=== PATIENT | female | born 2000 | race Caucasian/White ===

== ENCOUNTER → 2022-10-30 14:42 | Outpatient (BNVA) | payer MEDICAID, SELFPAY | PROVIDERS: Family Provider Pediatrics; Visit Provider Obstetrics & Gynecology | DX: Z34.90 Encounter for supervision of normal pregnancy, unspecified, unspecified trimester (principal) | CPT/HCPCS: 80307; 81000; 81025; 84315; 85027; 86592; 86762; 86803; 86850; 86900; 87086; 87340; 87806 ==

== ENCOUNTER → 2022-11-26 13:40 | Outpatient (BNVA) | payer BC, SELFPAY | PROVIDERS: Family Provider Pediatrics; Visit Provider Obstetrics & Gynecology | DX: Z36.87 Encounter for antenatal screening for uncertain dates (principal) | CPT/HCPCS: 76815; 81000 ==

== ENCOUNTER 2022-12-09 17:29 | Emergency (ER) | payer BC, MEDICAID, SELFPAY ==
[2022-12-09 17:43] VITALS: BP 107/60; PULSE 87; RESP 16; TEMP 36.3; O2SAT 97; BMI 21.9
[2022-12-09 18:28] LABS: Alanine Aminotransferase 20 U/L (0-33); Alkaline Phosphatase 62 U/L (35-105); Anion Gap 13.8 (5-19); Aspartate Amino Transferase 19 U/L (0-32); Blood Urea Nitrogen 13 mg/dL (6-20); Calcium 8.6 mg/dL (8.5-10.5); Carbon Dioxide 21 mmol/L (22-29); Chloride 105 mmol/L (98-107); Globulin 2.6 g/dL (1.3-4.6); Glomerular Filtration Rate 155.7 mL/min (90-130); Glucose 80 mg/dL (65-115); Lipase 17 U/L (13-60); Osmolality Calculated 281 mOsm/kg (285-295); Potassium 3.8 mmol/L (3.5-5.1); Sodium 136 mmol/L (136-145); Total Bilirubin 0.2 mg/dL (0.15-1.2); Total Protein 6.6 g/dL (6.6-8.7)
[2022-12-09 18:32] LABS: Basophils % 0.2 %; Eosinophils # 0.1 10^3/uL (0.0-0.8); Eosinophils % 0.6 %; Hematocrit 32.3 % (37.0-47.0); Hemoglobin 10.8 g/dL (11.5-15.3); Lymphocytes # 2.2 10^3/uL (0.8-4.8); Lymphocytes % 17.8 %; Mean Corpuscular HGB Conc 33.4 g/dL (30.0-36.0); Mean Corpuscular Hemoglobin 32.3 pg (28.0-34.0); Mean Corpuscular Volume 96.7 fl (81-99); Mean Platelet Volume 8.7 fL (7.4-10.4); Monocytes # 0.8 10^3/uL (0.2-0.9); Monocytes % 6.5 %; Neutrophils # 9.15 10^3/uL (1.8-7.7); Neutrophils % 74.2 %; Nucleated Red Blood Cells % 0 %; Platelet Count 260 10^3/cmm (130-400); Red Blood Count 3.34 10^6/uL (4.1-5.3); Red Cell Distribution Width 11.9 % (12.1-15.1); White Blood Count 12.3 10^3/uL (4.0-10.0)
[2022-12-09 18:40] LABS: Urine Appearance Cloudy (CLEAR); Urine Color Yellow (Yellow)
[2022-12-09 18:41] LABS: Bilirubin Urine Neg (Negative); Blood Urine Neg (Negative); Glucose Urine UA Norm (Normal); Ketones Urine Negative (Negative); Nitrate Urine Negative (Negative); Protein Urine Neg (Negative); Urobilinogen Urine Norm (Negative); pH Urine 7 (5-7)
[2022-12-09 18:43] LABS: Add Urine Microscopic? YES; Leukocyte Esterase Urine 2+ (Negative)
[2022-12-09 18:44] LABS: Bacteria Urine 3+ /hpf; RBC Urine 0-4 /hpf (0-2); Squamous Epithelial Cell Urine 15-25 /hpf (0-5)
[2022-12-09] MEDS: sodium chloride 0.9% 1,000 ML 999 ML IV (18:46)
[2022-12-09] MEDS: acetaminophen 500 mg Tablet 1000 MG PO (18:46)
--- NOTE | 2022-12-09 18:57 | ED_ITS ---
HPI - General: Chief complaint: OB/Uterine Contractions Stated complaint: 16 Weeks , Abd pain, Time Seen by Provider: 12/09/22 18:24 Source: patient Mode of arrival: ambulatory Limitations: no limitations History of Present Illness: 22-year-old female who is roughly 18 weeks states she has had some lower abdominal pain over the last day states that the bandlike pain across her abdomen rates pain a 4 out of 10 denies any vomiting or diarrhea had some increased urination denies any dysuria she denies fevers. Associated symptoms: Reports abdominal pain; Deny dysuria, headache(s), nausea or vomiting Review of Systems Const: Denies: fever(s) or chills Eyes: Denies: eye discomfort ENMT: Denies: throat pain or dental pain Card: Denies: chest pain Resp: Denies: dyspnea GI: Reports: abdominal pain; Denies: nausea or vomiting : Denies: dysuria Musc: Denies: neck pain or back pain Skin/Breast: Denies: rash Neuro: Denies: headache(s) PFSH ED PFSH: Family History Grandmother Thyroid disease Maternal Ovarian cancer Mother Ovarian cancer Denies family history of Colon cancer Diabetes Heart disease Breast cancer Hypertension Uterine cancer Stroke Physical Exam Const: COMMON NORMALS: no acute distress, patient oriented x3 and healthy appearing HENMT: COMMON NORMALS: normocephalic; head/scalp not atraumatic HEAD & SCALP: normocephalic; not atraumatic Eye: COMMON NORMALS: conjunctivae normal CONJUNCTIVA: Yes conjunctivae normal Neck/C-Spine: COMMON NORMALS: full ROM and supple Chest: COMMONS NORMALS: normal inspection of the chest and normal palpation of entire chest wall Resp: COMMON NORMALS: normal respiratory effort, No retractions, No use of accessory muscles and clear to auscultation bilaterally AUSCULTATION: clear to auscultation bilaterally Cardio: COMMON NORMALS: regular rate, regular rhythm and No murmurs present (Cardio) RATE: regular rate RHYTHM: regular rhythm GI: COMMON NORMALS: Normal to inspection, nondistended, normoactive bowel sounds present, Soft to palpation and no masses PALPATION: Yes Soft to palpation OTHER: Gravid uterus slight suprapubic tenderness no right lower quadrant tenderness. Extremity: COMMON NORMALS: normal to inspection and full ROM Neuro: COMMON NORMALS: patient oriented x3, moves all extremities and no focal motor deficits Psych: COMMON NORMALS: mental status grossly normal, Normal thought process present and cooperative THOUGHT PROCESS: Normal thought process present Skin: COMMON NORMALS: no rashes or lesions noted and no wounds GENERAL SKIN EXAM: no rashes or lesions noted Course Vital Signs: Vital signs: Vital Signs Temperature 97.4 F L 12/09/22 17:43 Pulse Rate 87 12/09/22 17:43 Respiratory Rate 16 12/09/22 17:43 Blood Pressure 107/60 12/09/22 17:43 Pulse Oximetry 97 12/09/22 17:43 Oxygen Delivery Me thod Room Air 12/09/22 17:43 MDM - OB/Uterine Contractions Medical Decision Making Patient presents here with abdominal pain in likely from her UTI she has no right lower quadrant tenderness no signs of appendicitis here did a be dside ultrasound showed IUP with heart rate of 152 she is stable for discharge she is to follow-up with her PCP and return if worsening she understands agrees to plan. Lab Data 12/09/22 18:00 12/09/22 18:00 Laboratory Results WBC 12.3 10^3/uL (4.0-10.0) H 12/09/22 18:00 RBC 3.34 10^6/uL (4.1-5.3) L 12/09/22 18:00 Hgb 10.8 g/dL (11.5-15.3) L 12/09/22 18:00 Hct 32.3 % (37.0-47.0) L 12/09/22 18:00 MCV 96.7 fl (81-99) 12/09/22 18:00 MCH 32.3 pg (28.0-34.0) 12/09/22 18:00 MCHC 33.4 g/dL (30.0-36.0) 12/09/22 18:00 RDW 11.9 % (12.1-15.1) L 12/09/22 18:00 Plt Count 260 10^3/cmm (130-400) 12/09/22 18:00 MPV 8.7 fL (7.4-10.4) 12/09/22 18:00 Neut % (Auto) 74.2 % 12/09/22 18:00 Lymph % (Auto) 17.8 % 12/09/22 18:00 [place] % (Auto) 6.5 % 12/09/22 18:00 Eos % (Auto) 0.6 % 12/09/22 18:00 Baso % (Auto) 0.2 % 12/09/22 18:00 Neut # (Auto) 9.15 10^3/uL (1.8-7.7) H 12/09/22 18:00 Lymph # (Auto) 2.2 10^3/uL (0.8-4.8) 12/09/22 18:00 [place] # (Auto) 0.8 10^3/uL (0.2-0.9) 12/09/22 18:00 Eos # (Auto) 0.1 10^3/uL (0.0-0.8) 12/09/22 18:00 Baso # (Auto) 0.0 10^3/uL (0.0-0.1) 12/09/22 18:00 Nucleated RBC % (auto) 0 % 12/09/22 18:00 Nucleated RBCs # 0.0 /100WBC 12/09/22 18:00 Sodium 136 mmol/L (136-145) 12/09/22 18:00 Potassium 3.8 mmol/L (3.5-5.1) 12/09/22 18:00 Chloride 105 mmol/L (98-107) 12/09/22 18:00 Carbon Dioxide 21 mmol/L (22-29) L 12/09/22 18:00 Anion Gap 13.8 (5-19) 12/09/22 18:00 BUN 13 mg/dL (6-20) 12/09/22 18:00 Creatinine 0.5 mg/dL (0.5-0.9) 12/09/22 18:00 GFR Calculation 155.7 mL/min (90-130) H 12/09/22 18:00 Glucose 80 mg/dL (65-115) 12/09/22 18:00 Calculated Osmolality 281 mOsm/kg (285-295) L 12/09/22 18:00 Calcium 8.6 mg/dL (8.5-10.5) 12/09/22 18:00 Total Bilirubin 0.2 mg/dL (0.15-1.2) 12/09/22 18:00 AST 19 U/L (0-32) 12/09/22 18:00 ALT 20 U/L (0-33) 12/09/22 18:00 Alkaline Phosphatase 62 U/L (35-105) 12/09/22 18:00 Total Protein 6.6 g/dL (6.6-8.7) 12/09/22 18:00 Albumin 4.0 g/dL (3.5-5.2) 12/09/22 18: Globulin 2.6 g/dL (1.3-4.6) 12/09/22 18:00 Lipase 17 U/L (13-60) 12/09/22 18:00 Urine Color Yellow (Yellow) 12/09/22 18: Urine Appearance Cloudy (CLEAR) A 12/09/22 18: Urine pH 7 (5-7) 12/09/22 18:29 Ur Specific [place] 1.010 (1.005-1.030) 12/09/22 18: Urine Protein Neg (Negative) 12/09/22 18: Urine Glucose (UA) Norm (Normal) 12/09/22 18: Urine Ketones Negative (Negative) 12/09/22 18: Urine Blood Neg (Negative) 12/09/22 18: Urine Nitrate Negative (Negative) 12/09/22 18: Urine Bilirubin Neg (Negative) 12/09/22 18: Urine Urobilinogen Norm mg/dL (Negative) 12/09/22 18: Ur Leukocyte Esterase 2+ (Negative) H 12/09/22 18: Urine RBC 0-4 /hpf (0-2) H 12/09/22 18:29 Urine WBC 10-15 /hpf (0-5) H 12/09/22 18:29 Ur Squamous Epith Cells 15-25 /hpf (0-5) H 12/09/22 18: Amorphous Sediment Not Reportable 12/09/22 18: Urine Bacteria 3+ /hpf (NONE) H 12/09/22 18: Discharge Plan Discharge Patient Disposition: Home Clinical Impression: Acute cystitis, Abdominal pain in Condition: Stable Prescriptions: New cephalexin 500 mg capsule 500 mg PO TID 7 Days Qty: 21 0RF No Action prenat.vits,guilherme,yvf-dysx-sduun Tablet 1 tab PO DAILY Qty: 90 3RF Discharge Orders: Discharge ED (Routine); Ordered 12/09/22 Ordered By: Reyna Almeida Discharge Diet: Advance as tolerated Discharge Activity: Resume usual activity Patient Instructions: Urinary Tract Infection in Women (ED), Abdominal Pain in (ED) Coding Level of Care Code ED Biomedical Equipment Specialist for Anya Peters
[2022-12-09] MEDS: cefTRIAXone 1,000 MG in sodium chloride 0.9% (plus) 50 ML 100 MG IV (19:02)
--- NOTE | 2022-12-14 12:57 | DCPLANNER ---
condominium manager called patient due to no primary care physician - no answer at this time.
== END 2022-12-09 19:41 | disposition home or self-care (01) ==
PROVIDERS: Nurse Practitioner Family; Emergency Provider Emergency Medicine
DX: O23.12 Infections of bladder in pregnancy, second trimester (principal); N30.00 Acute cystitis without hematuria; Z3A.18 18 weeks gestation of pregnancy
CPT/HCPCS: 36415; 80053; 81001; 83690; 84702; 85025; 96365; 99284; J0696; J7030

== ENCOUNTER → 2022-12-26 14:37 | Outpatient (BNVA) | payer BC, MEDICAID, SELFPAY | PROVIDERS: Visit Provider Obstetrics & Gynecology | DX: Z36.87 Encounter for antenatal screening for uncertain dates (principal); Z3A.20 20 weeks gestation of pregnancy | CPT/HCPCS: 76805 ==

== ENCOUNTER → 2023-01-02 15:04 | Outpatient (BNVA) | payer BC, MEDICAID, SELFPAY | PROVIDERS: Visit Provider Obstetrics & Gynecology | DX: Z34.00 Encounter for supervision of normal first pregnancy, unspecified trimester (principal) | CPT/HCPCS: 81000 ==

== ENCOUNTER → 2023-02-13 09:47 | Outpatient (BNVA) | payer BC, MEDICAID, SELFPAY | PROVIDERS: Visit Provider Obstetrics & Gynecology | DX: Z34.00 Encounter for supervision of normal first pregnancy, unspecified trimester (principal) | CPT/HCPCS: 76816; 81000; 82950; 85025 ==

== ENCOUNTER → 2023-02-26 09:14 | Outpatient (BNVA) | payer BC, MEDICAID, SELFPAY | PROVIDERS: Visit Provider Obstetrics & Gynecology | DX: Z34.00 Encounter for supervision of normal first pregnancy, unspecified trimester (principal) | CPT/HCPCS: 81000 ==

== ENCOUNTER → 2023-03-13 13:45 | Outpatient (BNVA) | payer BC, MEDICAID, SELFPAY | PROVIDERS: Family Provider Pediatrics; Visit Provider Obstetrics & Gynecology | DX: Z34.00 Encounter for supervision of normal first pregnancy, unspecified trimester (principal) | CPT/HCPCS: 81000 ==

== ENCOUNTER → 2023-03-27 13:10 | Outpatient (BNVA) | payer BC, MEDICAID, SELFPAY | PROVIDERS: Family Provider Pediatrics; Visit Provider Nurse Practitioner Women's Health | DX: Z34.00 Encounter for supervision of normal first pregnancy, unspecified trimester (principal) | CPT/HCPCS: 80307; 81000; 87086; 87491; 87591 ==

== ENCOUNTER → 2023-03-28 12:33 | Outpatient (BNVA) | payer BC, MEDICAID, SELFPAY | PROVIDERS: Family Provider Pediatrics; Visit Provider Obstetrics & Gynecology | DX: Z34.90 Encounter for supervision of normal pregnancy, unspecified, unspecified trimester (principal) | CPT/HCPCS: 76816 ==

== ENCOUNTER → 2023-04-08 15:45 | Outpatient (BNVA) | payer BC, MEDICAID, SELFPAY | PROVIDERS: Family Provider Pediatrics; Visit Provider Obstetrics & Gynecology | DX: Z34.90 Encounter for supervision of normal pregnancy, unspecified, unspecified trimester (principal) | CPT/HCPCS: 81000 ==

== ENCOUNTER → 2023-04-17 15:30 | Outpatient (BNVA) | payer BC, MEDICAID, SELFPAY | PROVIDERS: Family Provider Pediatrics; Visit Provider Obstetrics & Gynecology | DX: Z34.90 Encounter for supervision of normal pregnancy, unspecified, unspecified trimester (principal) | CPT/HCPCS: 81000; 87081 ==

== ENCOUNTER → 2023-04-24 13:13 | Outpatient (BNVA) | payer BC, MEDICAID, SELFPAY | PROVIDERS: Family Provider Pediatrics; Visit Provider Obstetrics & Gynecology | DX: Z34.00 Encounter for supervision of normal first pregnancy, unspecified trimester (principal) | CPT/HCPCS: 81000 ==

== ENCOUNTER → 2023-05-01 13:41 | Outpatient (BNVA) | payer BC, MEDICAID, SELFPAY | PROVIDERS: Family Provider Pediatrics; Visit Provider Obstetrics & Gynecology | DX: Z34.00 Encounter for supervision of normal first pregnancy, unspecified trimester (principal) | CPT/HCPCS: 81000 ==

== ENCOUNTER → 2023-05-08 13:44 | Outpatient (BNVA) | payer BC, MEDICAID, SELFPAY | PROVIDERS: Family Provider Pediatrics; Visit Provider Nurse Practitioner Women's Health | DX: Z34.00 Encounter for supervision of normal first pregnancy, unspecified trimester (principal) | CPT/HCPCS: 81000 ==

== ENCOUNTER → 2023-05-13 07:52 | Outpatient (BNVA) | payer BC, MEDICAID, SELFPAY | PROVIDERS: Family Provider Pediatrics; Visit Provider Nurse Practitioner Women's Health | DX: Z34.00 Encounter for supervision of normal first pregnancy, unspecified trimester (principal) | CPT/HCPCS: 76815; 76819; 76820 ==

== ENCOUNTER 2023-05-13 19:28 | Inpatient (IN) | payer BC, MEDICAID, SELFPAY ==
[2023-05-13] VITALS (34 sets, daily range): BP systolic 93–140; BP diastolic 50–83; PULSE 59–86; RESP 16–18; TEMP 36.1–36.7; BMI 30.7
--- NOTE | 2023-05-13 13:10 | PM.OBGYHP ---
Providers/Chief Complaint Admitting Physician: Dr. Milian Primary SUBWAY TRAIN OPERATOR: Dr. Milian Chief Complaint: induction HPI SUBWAY TRAIN OPERATOR History of Present Illness Ingrid Simmons is a 23 year old female G1, P0 at 40.2 weeks gestation with SOSA 05/11/2023 by ultrasound. Patient is admitted to labor and delivery for induction of labor. Patient admits to good movement, she denies vaginal bleeding or leakage of fluid. Patient had ultrasound today with BPP 8/8, estimated weight 2930 g, estimated gestational age 37 weeks, GABI 13.7 cm with vertex presentation anterior placenta. EFM?category 1 on admission Cervix?closed/50%/-2 vertex presentation Discussed plan with patient for Cytotec administration to help repair the cervix for labor which may also cause mild contractions. Contractions will gradually increase in intensity. Several Cytotec doses may be needed to prepare cervix for labor. Nonreassuring monitoring may indicate need for section delivery. Plan reviewed with patient and family member both verbalized understanding. Present Details : 1 Para: 0 Obstetrical complications: none Medical complications OB: none Other Details: Patient has continued to use marijuana and vape during . Review of Systems General: Reports: 10 or more systems reviewed and unremarkable except in HPI and below Medications/Allergies Home Medications Medication Instructions Recorded Confirmed Last Taken Type prenat.vits,guilherme,pgk-knns-erlpf 1 tab PO DAILY #90 tabs 10/30/22 05/13/23 Unknown Rx ondansetron HCl 4 mg tablet 4 mg PO Q8H PRN nausea and 05/02/23 05/13/23 Unknown Rx vomiting #30 tabs Allergies Allergy/AdvReac Type Severity Reaction Status Date / Time No Known Allergies Allergy Verified 05/13/23 08:02 PFSH SUBWAY TRAIN OPERATOR PFSH: Family History (Reviewed 05/08/23 @ 12:13 by Graciela Vega [facility]) Grandmother Thyroid disease Maternal Ovarian cancer Mother Ovarian cancer Denies family history of Colon cancer Diabetes Heart disease Breast cancer Hypertension Uterine cancer Stroke Other Female Reproductive History: Hx Age of Menarche: 15 Duration of menses: 3-5 days Cycle Length: 28 to 34 days Menstrual flow: normal/abnormal: normal Sexual History: How old were you when you first had sex?: 15 How many partners have you had?: 5 How long have you been with your current partner?: Since 2021 What is your sexual preference?: Heterosexual STD History Comment: Denies history of STDs Contraception: Contraception History Comment: History of Depo-Provera use History History History 1 Term 1 0 Miscarriages/Ectopic Living Children Care SOSA Calculator Estimated Delivery Date Method Current WG Current Estimate 05/11/23 Ultrasound #1 40w 2d Other Estimates 06/01/23 LMP (Uncertain) 37w 2d Vitals/I&O/Wt Last Vital Signs Pulse 69 05/13/23 13:00 BP 120/61 05/13/23 13:00 Weight last 48 hrs Weight 76.204 kg Physical Exam Narrative: 23-year-old female Const: COMMON NORMALS: no acute distress, patient oriented x3, healthy appearing and well nourished HENMT: COMMON NORMALS: normocephalic and moist oral mucous membranes Resp: COMMON NORMALS: clear to auscultation bilaterally Cardio: COMMON NORMALS: regular rate and regular rhythm Back/Pelvis: OTHER: Abdomen?gravid Extremity: COMMON NORMALS: no clubbing, cyanosis or edema and no calf tenderness Neuro: COMMON NORMALS: CN's II-XII intact bilaterally Results Labs OB ([facility]): Obstetrics US 03/28/23 Obstetrics US/Biophysical Profile 05/13/23 Blood Type A Positive 10/30/22 Antibody Screen Not Reportable 10/30/22 Hct 36.1 % (37.0-47.0) L 02/13/23 Hgb 12.2 g/dL (11.5-15.3) 02/13/23 Rho(D) Type Positive 10/30/22 Plt Count 268 10^3/cmm (130-400) 02/13/23 Hep Bs Antigen Non-reactive (Nonreactive) 10/30/22 Hepatitis C Antibody Non-reactive (Nonreactive) 10/30/22 Rubella IgG Antibody 124.1 IU/mL (0.0-10.0) H 10/30/22 RPR Nonreactive (Nonreactive) 10/30/22 HIV 1&2 Ab & HIV 1 Ag Non-reactive (Non-Reactiv) 10/30/22 C.trachomatis RNA (TMA) Not detected (NOT DETECTED) 03/27/23 N.gonorrhoeae RNA (TMA) Not detected (NOT DETECTED) 03/27/23 Chlamydia/GC Comment See note 03/27/23 Cystic Fibrosis Screen Negative 10/30/22 Gest Glucose Tolerance 101 mg/dL 02/13/23 Ser , Semi-Qnt 21200.00 mIU/mL 12/09/22 HCG, Qual Positive (Negative) H 10/30/22 Urine Opiates Screen Negative ng/mL (Negative) 03/27/23 Ur Barbiturates Screen Negative ng/mL (Negative) 03/27/23 Ur Phencyclidine Scrn Negative ng/mL (Negative) 03/27/23 Ur Amphetamines Screen Negative ng/mL (Negative) 03/27/23 U Benzodiazepines Scrn Negative ng/mL (Negative) 03/27/23 Urine Cocaine Screen Negative ng/mL (Negative) 03/27/23 U Marijuana (THC) Screen Positive ng/mL (Negative) H 03/27/23 Micro Urine Specimen 03/27/23 A&P Assessment and plan (1) 40 weeks gestation of : Plan. #1 admit to labor and delivery for cervical ripening/induction of labor. (2) Post-dates : (3) Nicotine abuse: (4) Marijuana use during : Attestations Medical Necessity Statement*: Admission to labor and delivery for induction of labor due to postdates Coding Level of Care Code Acute Code for Chg Fwd Diagnoses 40 weeks gestation of Z3A.40 Post-dates O48.0 Nicotine abuse Z72.0 Marijuana use during O99.320; F12.90
[2023-05-13] MEDS: lactated ringers 1,000 ML 999 ML IV (13:24)
[2023-05-13] MEDS: miSOPROStol 100 mcg tablet 25 MCG VAGINAL (14:16)
[2023-05-13 14:31] LABS: Basophils # 0.1 10^3/uL (0.0-0.1); Basophils % 0.3 %; Eosinophils % 0.2 %; Hematocrit 35.7 % (36-47); Lymphocytes # 2.7 10^3/uL (0.8-4.8); Lymphocytes % 17.1 %; Mean Corpuscular HGB Conc 34.7 g/dL (30-55); Mean Corpuscular Hemoglobin 34.6 pg (27-33); Mean Corpuscular Volume 99.7 fl (85-98); Mean Platelet Volume 10.3 fL (7.4-10.4); Monocytes # 1.1 10^3/uL (0.2-0.9); Monocytes % 6.7 %; Neutrophils # 11.94 10^3/uL (1.8-7.7); Neutrophils % 74.3 %; Nucleated Red Blood Cells % 0 %; Platelet Count 257 10^3/cmm (157-399); Red Blood Count 3.58 10^6/uL (3.85-5.65); Red Cell Distribution Width 11.9 % (12.1-15.1); White Blood Count 16.06 10^3/uL (3.29-11.43)
[2023-05-13] MEDS: dextrose 5%-lactated ringers 1,000 ML 125 ML IV (14:41)
[2023-05-13 15:33] LABS: Amphetamines Screen Urine Negative (Negative); Barbiturates Screen Urine Negative (Negative); Benzodiazepines Screen Urine Negative (Negative); Cocaine Screen Urine Negative (Negative); Opiate Screen Urine Negative (Negative); PCP Screen Urine Negative (Negative); THC Screen Urine Positive (Negative)
--- NOTE | 2023-05-13 20:35 | P.PN_ITS ---
LIFE INSURANCE SALES AGENT Subjective Subjective: Interval history: 22 y.o. At 40 w 2 d Admitted for IOL Fetus reassuring Received one dose of Cytotec Feeling very mild UCs Cx: 1 cm / -2 / Vtx Plan repeat Cytotec 25 ug intravaginal Labor: Station: +3 Amniotic Membrane Status: Ruptured Monitor Mode: Palpation Contraction Pattern: Regular Status: Category I Vitals/I&O/Wt Last Vital Signs Temp 98.1 F 05/14/23 18:54 Pulse 78 05/14/23 18:54 Resp 18 05/14/23 18:54 BP 127/80 05/14/23 18:54 Pulse Ox 98 05/14/23 18:54 O2 Del Method Room Air 05/14/23 18:54 05/14/23 05/14/23 05/14/23 06:59 14:59 22:59 Intake Total 62.050 / 2063.400 2436.600 / 2436.600 Output Total 800 / 800 Balance 62.050 / 2063.400 1636.600 / 1636.600 Weight last 48 hrs Weight 168 lb Weight 168 lb Data 05/13/23 12:45 A&P Assessment and plan (1) 40 weeks gestation of : patient admitted for labor induction (2) Encounter for induction of labor: received one dose of cytotec plan repeat cytotec 25 ug intravaginal Attestations Medical Necessity Statement*: patient at 40 w 2 d, admitted for induction of labor Coding Level of Care Code Acute Code for Chg Fwd Diagnoses 40 weeks gestation of Z3A.40 Encounter for induction of labor Z34.90 Time Spent (min) 20
[2023-05-13] MEDS: oxytocin 30 UNIT/500 ML BAG IV (21:23)
[2023-05-14] VITALS (40 sets, daily range): BP systolic 114–165; BP diastolic 55–89; PULSE 52–116; RESP 16–20; TEMP 35.6–36.7; O2SAT 94–100
[2023-05-14] MEDS: dextrose 5%-lactated ringers 1,000 ML 125 ML IV (00:40)
[2023-05-14] MEDS: fentaNYL 50 mcg/mL INJ 2mL IVP ×5 (01:00→07:59)
[2023-05-14] MEDS: ondansetron 2 mg/ML SDV 2 mL 4 MG IVP (01:54)
[2023-05-14] MEDS: lactated ringers 1,000 ML 999 ML IV (08:30)
[2023-05-14] MEDS: lidocaine 2% INJ 20 mL INJECTION (10:40)
--- NOTE | 2023-05-14 11:05 | PM.DELIVERY ---
Delivery Note: Date of delivery: May 14, 2023 Pre-delivery diagnoses: 40 w 2 d admitted for induction of labor Post-delivery diagnoses: 40 w 2 d admitted for induction of labor vaginal delivery second-degree perineal laceration repair Procedure: Spontaneous vaginal delivery second-degree perineal laceration repair Op report anesthesia: None Delivering Physician: Raphael HUMPHRIES Estimated blood loss (mL): 300 Findings: , vigorous male Normal placenta and cord Cord gases and blood obtained Second-degree perineal laceration repaired EBL 300 cc No complications Pre-Delivery Course: patient progressed without complications Delivery: vaginal delivery Post-Delivery Status: Stable History History History 1 Term 1 0 Miscarriages/Ectopic Living Children Other History: Patient has continued to use marijuana and vape during . A&P Assessment and plan (1) Vaginal delivery: s/p spontaneous vaginal delivery (2) Perineal laceration during delivery: repair of second-degree perineal laceration Coding Level of Care Code Acute Code for Chg Fwd Diagnoses Vaginal delivery O80 Perineal laceration during delivery O70.9 Time Spent (min) 90
--- NOTE | 2023-05-14 11:05 | PM.OBGYPN ---
RUBBER COMPOUNDER Subjective Subjective: Interval history: May 14, 2023, 1105 , vigorous male Normal placenta and cord Cord gases and blood obtained Second-degree perineal laceration repaired EBL 300 cc No complications Labor: Station: +3 Amniotic Membrane Status: Ruptured Monitor Mode: Palpation Contraction Pattern: Regular Status: Category I Vitals/I&O/Wt Last Vital Signs Temp 98.1 F 05/14/23 18:54 Pulse 78 05/14/23 18:54 Resp 18 05/14/23 18:54 BP 127/80 05/14/23 18:54 Pulse Ox 98 05/14/23 18:54 O2 Del Method Room Air 05/14/23 18:54 05/14/23 05/14/23 05/14/23 06:59 14:59 22:59 Intake Total 62.050 / 2063.400 2436.600 / 2436.600 Output Total 800 / 800 Balance 62.050 / 2063.400 1636.600 / 1636.600 Weight last 48 hrs Weight 168 lb Weight 168 lb Data 05/13/23 12:45 A&P Assessment and plan (1) 40 weeks gestation of : admitted for labor induction (2) Encounter for induction of labor: patient progressed to complete / pushing (3) Vaginal delivery: s/p with second-degree perineal laceration repair Attestations Medical Necessity Statement*: patient at 40 w 2 d, admitted for labor induction, s/p vaginal delivery Coding Level of Care Code Acute Code for Chg Fwd Diagnoses 40 weeks gestation of Z3A.40 Encounter for induction of labor Z34.90 Vaginal delivery O80 Time Spent (min) 90
[2023-05-14] MEDS: docusate sodium 100 mg Capsule PO (18:28)
[2023-05-14] MEDS: ibuprofen 800 mg tablet PO (21:15)
[2023-05-14 23:15] LABS: Hematocrit 29.3 % (36-47); Mean Corpuscular HGB Conc 35.2 g/dL (30-55); Mean Corpuscular Volume 99.7 fl (85-98); Mean Platelet Volume 9.6 fL (7.4-10.4); Platelet Count 191 10^3/cmm (157-399); Red Blood Count 2.94 10^6/uL (3.85-5.65)
[2023-05-15 06:47] VITALS: BP 114/58; PULSE 75; RESP 16; TEMP 36.7; O2SAT 98
[2023-05-15] MEDS: ibuprofen 800 mg tablet PO (09:05)
[2023-05-15 09:06] VITALS: BP 121/73; PULSE 82; RESP 16; TEMP 36.8; O2SAT 95
[2023-05-15] MEDS: prenatal vitamin Capsule 1 CAP PO (09:06)
[2023-05-15] MEDS: docusate sodium 100 mg Capsule PO (09:06)
--- NOTE | 2023-05-15 13:35 | P.PN_ITS ---
LIBRARY CATALOGING TECHNICIAN Subjective Subjective: Interval history: no c/o no bleeding, pain eating, voiding, ambulating well caring for without any problems Labor: Station: +3 Amniotic Membrane Status: Ruptured Monitor Mode: Palpation Contraction Pattern: Regular Status: Category I Vitals/I&O/Wt Last Vital Signs Temp 97.9 F 05/15/23 15:00 Pulse 82 05/15/23 15:00 Resp 15 05/15/23 15:00 BP 131/80 05/15/23 15:00 Pulse Ox 99 05/15/23 15:00 O2 Del Method Room Air 05/15/23 14:45 Physical Exam Narrative: afebrile, VS normal comfortable, awake, alert Lungs: clear Cor: RRR Abd:? soft, nontender.? fundus firm Ext:? no edema;? nontender Data 05/14/23 23:00 A&P Assessment and plan (1) Vaginal delivery: PPD #1? and repair of second-degree perineal laceration ? doing well ? discharge home today ? instructions and precautions given call/return if fever, chills, headache, blurry vision, nausea, vomiting, abdominal pain; vaginal bleeding or discharge; shortness of breath, chest pain, leg pains or swelling; inability to void, perineal pain or swelling; feelings of depression or mood changes; thoughts of suicide or harming others; inability to care for baby. f/u in 6 weeks or PRN (2) Perineal laceration during delivery: PPD #1? and repair of second-degree perineal laceration ? doing well ? discharge home today ? instructions and precautions given call/return if fever, chills, headache, blurry vision, nausea, vomiting, abdominal pain; vaginal bleeding or discharge; shortness of breath, chest pain, leg pains or swelling; inability to void, perineal pain or swelling; feelings of depression or mood changes; thoughts of suicide or harming others; inability to care for baby. f/u in 6 weeks or PRN Attestations Medical Necessity Statement*: patient s/p vaginal delivery and repair of second-degree perineal laceration, plan discharge home today Coding Level of Care Code Acute Code for Chg Fwd Diagnoses Vaginal delivery O80 Perineal laceration during delivery O70.9 Time Spent (min) 20
--- NOTE | 2023-05-15 13:35 | PM.OBGYDC ---
Discharge Providers JACQUARD CARD LACER Date of Admission: 05/13/23 19:28 Date of Discharge: 05/18/23 Attending Provider at Admission: Raphael Milian MD Attending Provider at Discharge: Raphael Milian MD Consults: none Primary JACQUARD CARD LACER: Raphael Milian MD Diagnoses at Discharge Discharge Diagnosis (1) Vaginal delivery: Details from hospital stay: patient with vaginal delivery and repair of second-degree perineal laceration did well without any complications Status: Acute (2) Perineal laceration during delivery: Status: Acute Reason for Visit Reason for Visit: induction Brief History: 22 y.o. at 40 w 2 d admitted for labor induction Hospital Course Hospital Course patient received cytotec and pitocin progressed to complete cervical dilatation delivered vaginally with repair of second-degree perineal laceration there were no complications Information Peripartum Data: Infant Delivery Method: Vaginal Laceration description: Perineal - 2nd Degree complications: none Physical Exam Narrative: afebrile, VS normal comfortable, awake, alert Abd:? soft, nontender.? fundus firm Ext:? no edema;? nontender History History History 1 Term 1 0 Miscarriages/Ectopic Living Children Other History: Patient has continued to use marijuana and vape during . Discharge Data Studies Completed and Pending Laboratory Results WBC 24.10 10^3/uL (3.29-11.43) H 05/14/23 23:00 RBC 2.94 10^6/uL (3.85-5.65) L 05/14/23 23:00 Hgb 10.30 g/dL (11.27-16.99) L 05/14/23 23:00 Hct 29.3 % (36-47) L 05/14/23 23:00 MCV 99.7 fl (85-98) H 05/14/23 23:00 MCH 35.0 pg (27-33) H 05/14/23 23:00 MCHC 35.2 g/dL (30-55) 05/14/23 23:00 RDW 12.0 % (12.1-15.1) L 05/14/23 23:00 Plt Count 191 10^3/cmm (157-399) 05/14/23 23:00 MPV 9.6 fL (7.4-10.4) 05/14/23 23:00 Neut % (Auto) 74.3 % 05/13/23 12:45 Lymph % (Auto) 17.1 % 05/13/23 12:45 [place] % (Auto) 6.7 % 05/13/23 12:45 Eos % (Auto) 0.2 % 05/13/23 12:45 Baso % (Auto) 0.3 % 05/13/23 12:45 Neut # (Auto) 11.94 10^3/uL (1.8-7.7) H 05/13/23 12:45 Lymph # (Auto) 2.7 10^3/uL (0.8-4.8) 05/13/23 12:45 [place] # (Auto) 1.1 10^3/uL (0.2-0.9) H 05/13/23 12:45 Eos # (Auto) 0.0 10^3/uL (0.0-0.8) 05/13/23 12:45 Baso # (Auto) 0.1 10^3/uL (0.0-0.1) 05/13/23 12:45 Nucleated RBC % (auto) 0 % 05/13/23 12:45 Nucleated RBCs # 0.0 /100WBC 05/13/23 12:45 Urine Opiates Screen Negative ng/mL (Negative) 05/13/23 14:44 Ur Barbiturates Screen Negative ng/mL (Negative) 05/13/23 14:44 Ur Phencyclidine Scrn Negative ng/mL (Negative) 05/13/23 14:44 Ur Amphetamines Screen Negative ng/mL (Negative) 05/13/23 14:44 U Benzodiazepines Scrn Negative ng/mL (Negative) 05/13/23 14:44 Urine Cocaine Screen Negative ng/mL (Negative) 05/13/23 14:44 U Marijuana (THC) Screen Positive ng/mL (Negative) H 05/13/23 14:44 Blood Type A Positive 05/13/23 12:45 Rho(D) Type Positive 05/13/23 12:45 Antibody Screen Negative 05/13/23 12:45 Vitals Last Vital Signs Temp 97.9 F 05/15/23 15:00 Pulse 82 05/15/23 15:00 Resp 15 05/15/23 15:00 BP 131/80 05/15/23 15:00 Pulse Ox 99 11/01/23 15:00 O2 Del Method Room Air 05/15/23 14:45 Results Labs OB ([facility]): Obstetrics US 03/28/23 Obstetrics US/Biophysical Profile 05/13/23 Blood Type A Positive 05/13/23 Antibody Screen Negative 05/13/23 Hct 29.3 % (36-47) L 05/14/23 Hgb 10.30 g/dL (11.27-16.99) L 05/14/23 Rho(D) Type Positive 05/13/23 Plt Count 191 10^3/cmm (157-399) 05/14/23 Hep Bs Antigen Non-reactive (Nonreactive) 10/30/22 Hepatitis C Antibody Non-reactive (Nonreactive) 10/30/22 Rubella IgG Antibody 124.1 IU/mL (0.0-10.0) H 10/30/22 RPR Nonreactive (Nonreactive) 10/30/22 HIV 1&2 Ab & HIV 1 Ag Non-reactive (Non-Reactiv) 10/30/22 C.trachomatis RNA (TMA) Not detected (NOT DETECTED) 03/27/23 N.gonorrhoeae RNA (TMA) Not detected (NOT DETECTED) 03/27/23 Chlamydia/GC Comment See note 03/27/23 Cystic Fibrosis Screen Negative 10/30/22 Gest Glucose Tolerance 101 mg/dL 02/13/23 Ser , Semi-Qnt 47629.00 mIU/mL 12/09/22 HCG, Qual Positive (Negative) H 10/30/22 Urine Opiates Screen Negative ng/mL (Negative) 05/13/23 Ur Barbiturates Screen Negative ng/mL (Negative) 05/13/23 Ur Phencyclidine Scrn Negative ng/mL (Negative) 05/13/23 Ur Amphetamines Screen Negative ng/mL (Negative) 05/13/23 U Benzodiazepines Scrn Negative ng/mL (Negative) 05/13/23 Urine Cocaine Screen Negative ng/mL (Negative) 05/13/23 U Marijuana (THC) Screen Positive ng/mL (Negative) H 05/13/23 Micro Urine Specimen 03/27/23 Discharge Plan Discharge Patient Disposition: Home Condition: Stable Prescriptions: Continued prenat.vits,guilherme,bux-hkhg-naniu Tablet 1 tab PO DAILY Qty: 90 3RF Discontinued ondansetron HCl 4 mg tablet 4 mg PO Q8H PRN (Reason: nausea and vomiting) Qty: 30 2RF Discharge Orders: Discharge Order (Routine); Ordered 05/15/23 Ordered By: Raphael Milian Referrals: Raphael Milian MD [Physician] - 06/19/23 8:45 am Discharge Diet: Usual diet Discharge Activity: Increase activity as tolerated Patient Instructions: Depression (DC), Your Baby (DC), Expression, Collection and Storage of Breast Milk (DC), How to Hold and Breastfeed Your Baby (DC), and Nipple Soreness (DC), and Breast Engorgement (DC), Bleeding (DC), Preeclampsia and Eclampsia After Delivery (GEN), Vaginal Delivery (DC), Hemorrhage (DC), OB Discharge Report, OB Food/Drug Interaction Guide, OB Care at Home, Opioid Safety, OB Home Care, Abnormal Bleeding Discharge Attestations JACQUARD CARD LACER Time Spent in Discharge Care*: less than 30 min Coding Level of Care Code Acute Code for Chg Fwd Diagnoses Vaginal delivery O80 Perineal laceration during delivery O70.9 Time Spent (min) 20
[2023-05-15 14:45] VITALS: BP 131/80; PULSE 82; RESP 15; TEMP 36.6; O2SAT 99
[2023-05-15 15:00] VITALS: BP 131/80; PULSE 82; RESP 15; TEMP 36.6; O2SAT 99
== END 2023-05-15 15:00 | disposition home or self-care (01) | DRG 806 ==
LOC: OPOB 19:31 → OBGYN 19:31
PROVIDERS: Obstetrics & Gynecology; Admitting Provider Obstetrics & Gynecology; Family Provider Pediatrics; Visit Provider Obstetrics & Gynecology
DX: O48.0 Post-term pregnancy (principal); O99.324 Drug use complicating childbirth; Z37.0 Single live birth; Z3A.40 40 weeks gestation of pregnancy; F12.90 Cannabis use, unspecified, uncomplicated; O99.334 Smoking (tobacco) complicating childbirth; F17.290 Nicotine dependence, other tobacco product, uncomplicated; O70.1 Second degree perineal laceration during delivery
CPT/HCPCS: 36415; 59025; 59409; 80306; 81000; 85025; 85027; 86850; 86900; 96374; 96376; 98960; 99211; J2405; J2590; J3010; J7120; J7121

== ENCOUNTER 2024-11-29 14:23 | Emergency (ER) | payer BC, MEDICAID, SELFPAY ==
[2024-11-29 14:30] VITALS: BP 141/84; PULSE 85; RESP 17; TEMP 37; O2SAT 99; BMI 24.7
--- NOTE | 2024-11-29 14:33 | XRR_ITS ---
PROCEDURE INFORMATION: Exam: XR Right Ankle Exam date and time: 11/29/2024 2:40 PM Age: 24 years old Clinical indication: Injury or trauma; Other: Twisted ankle; Sprain or strain; Right; Injury date: 11/28/24; Injury details: Twisted RT ankle yesterday, PT states heard an audible pop TECHNIQUE: Imaging protocol: Radiologic exam of the right ankle. Views: 3 or more views. COMPARISON: No relevant prior studies available. FINDINGS: Bones/joints: Normal. No fracture or dislocation. Soft tissues: Normal. XR/XR ankle RT min 3V* [id number] IMPRESSION: No acute findings.
--- NOTE | 2024-11-29 14:37 | W.ED.EXTPRO ---
HPI - Extremity Problem General: Chief complaint: Extremity Injury, Lower Stated complaint: rt ankle inj Time Seen by Provider: 11/29/24 14:34 Source: patient Mode of arrival: ambulatory Limitations: no limitations History of Present Illness: 24-year-old female states that she fell yesterday and twisted her right ankle. States that since then she has had pain to the lateral portion of her ankle worse with palpation and ambulation. States she is able ambulate but pain is worse with ambulating. Denies any other injuries from the fall Associated symptoms: Deny chest pain, fever(s) or rash Related Data Previous Rx's ?Medication ?Instructions ?Recorded prenat.vits,guilherme,[id number] 1 tab PO DAILY #90 tabs 10/30/22 cephalexin 500 mg capsule 500 mg PO Q6H 7 days #28 caps 10/28/23 naproxen 500 mg tablet (Naprosyn) 500 mg PO BID PRN pain #20 tabs 11/29/24 Allergies Allergy/AdvReac Type Severity Reaction Status Date / Time No Known Allergies Allergy Verified 10/24/23 13:46 Review of Systems Const: Denies: fever(s), chills, body aches or change in appetite ENMT: Denies: throat pain or dental pain Card: Denies: chest pain Resp: Denies: dyspnea GI: Denies: abdominal pain, nausea, vomiting or diarrhea Musc: Reports: extremity pain; Denies: neck pain or back pain Skin/Breast: Denies: rash Neuro: Denies: headache(s) PFSH ED PFSH: Medical History Perineal laceration during delivery Vaginal delivery Encounter for induction of labor Marijuana use during Nicotine abuse Post-dates 40 weeks gestation of Family History Grandmother Thyroid disease Maternal Ovarian cancer Mother Ovarian cancer Denies family history of Colon cancer Diabetes Heart disease Breast cancer Hypertension Uterine cancer Stroke Physical Exam Const: COMMON NORMALS: no acute distress, patient oriented x3 and healthy appearing HENMT: COMMON NORMALS: normocephalic and atraumatic HEAD & SCALP: normocephalic and atraumatic Eye: COMMON NORMALS: conjunctivae normal CONJUNCTIVA: Yes conjunctivae normal Neck/C-Spine: COMMON NORMALS: full ROM and supple Chest: COMMONS NORMALS: normal inspection of the chest Resp: COMMON NORMALS: normal respiratory effort Cardio: COMMON NORMALS: regular rate RATE: regular rate Extremity: NARRATIVE EXTREMITY EXAM: Tenderness over right lateral ankle no obvious deformity Neuro: COMMON NORMALS: patient oriented x3, moves all extremities and no focal motor deficits Psych: COMMON NORMALS: mental status grossly normal, Normal thought process present and cooperative THOUGHT PROCESS: Normal thought process present Skin: COMMON NORMALS: no rashes or lesions noted and no wounds GENERAL SKIN EXAM: no rashes or lesions noted Course Vital Signs: Vital signs: Vital Signs Temperature 98.6 F 11/29/24 14:30 Pulse Rate 85 11/29/24 14:30 Respiratory Rate 17 11/29/24 14:30 Blood Pressure 141/84 11/29/24 14:30 Pulse Oximetry 99 11/29/24 14:30 Oxygen Delivery Me thod Room Air 11/29/24 14:30 MDM - Extremity (Nontraumatic) Medical Decision Making Patient presents here with an ankle sprain x-ray shows no fractures patient is well-appearing here stable for discharge follow-up PCP return if worsening. Medical Records I reviewed the patient's medical records. All radiology interpretation(s) finalized by discharge ED provider radiology interpretation(s): xr r ankle: no acute fx Discharge Plan Discharge Patient Disposition: Home Clinical Impression: Ankle sprain and strain Condition: Stable Prescriptions: New naproxen [Naprosyn] 500 mg tablet 500 mg PO BID PRN (Reason: pain) Qty: 20 0RF No Action prenat.vits,guilherme,[id number] Tablet 1 tab PO DAILY Qty: 90 3RF cephalexin 500 mg capsule 500 mg PO Q6H 7 Days Qty: 28 0RF Discharge Orders: Discharge ED (Routine); Ordered 11/29/24 Ordered By: Reyna Almeida Referrals: Mannie Arias DPM [Physician, Podiatry] - 4-7 days Discharge Diet: Advance as tolerated Discharge Activity: Resume usual activity Patient Instructions: Ankle Sprain (ED) Print Language: Azeri Coding Level of Care Code ED Residency Program Coordinator for Anya Peters
[2024-11-29] MEDS: naproxen 500 mg Tablet PO (15:03)
--- NOTE | 2024-11-30 08:08 | DCPLANNER ---
Message sent to Podiatry Patient presents here with an ankle sprain x-ray shows no fractures patient is well-appearing here stable for discharge follow-up PCP return if worsening.
== END 2024-11-29 15:09 | disposition home or self-care (01) ==
PROVIDERS: Emergency Provider Emergency Medicine
DX: S93.401A Sprain of unspecified ligament of right ankle, initial encounter (principal); Z79.899 Other long term (current) drug therapy; W19.XXXA Unspecified fall, initial encounter
CPT/HCPCS: 73610; 99283; J9999